=== PATIENT | male | born 1995 | race Hispanic/Latino ===

== ENCOUNTER 2018-08-09 20:58 | Emergency (ER) | payer BC ==
[2018-08-09 21:06] VITALS: RESP 16
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
[2018-08-09] MEDS ORDERED: Tdap Vaccine 0.5 ml Vial (10-64 yrs) IM ONE ×2 (22:30→22:34)
[2018-08-09] MEDS ORDERED: Lidocaine/Epi 1% 1:100000 20 ML IJ ONE (23:36)
[2018-08-09] MEDS ORDERED: Lidocaine 1% w Epi 1:100,000 Inj ONE (23:47)
[2018-08-10 01:00] VITALS: BP 144/82; PULSE 86; TEMP 98.1
[2018-08-10 06:37] VITALS: O2SAT 98
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
== END 2018-08-10 00:57 | disposition home or self-care (01) ==
LOC: H.ER 20:58
DX: S02.2XXA Fracture of nasal bones, initial encounter for closed fracture (principal); S60.512A Abrasion of left hand, initial encounter; S01.21XA Laceration without foreign body of nose, initial encounter; Y04.0XXA Assault by unarmed brawl or fight, initial encounter